=== PATIENT | female | born 1995 | race Hispanic/Latino ===

== ENCOUNTER 2018-10-07 06:45 | Inpatient (IN) | payer OTHER ==
--- NOTE | 2018-10-07 08:37 | PDOC.LDHP ---
Labor and Delivery H&P Chief complaint: contractions HPI: 23 y/o G1 at 39w1d, patient of Dr. Ovalles, presents with contractions since yesterday afternoon with pink tinged mucus today. Denies VB, LOF, or decreased FM. No PIH sx. ROS neg for HEENT, cv, pulm, gi, gu, neuro, psych, musculoskeletal or constitutional symptoms other than mentioned above. OB History Details: First Current complications: none Past Medical History: None Current medications: pre-jalen vitamins Previous surgical history: none Social history: none - Physical Exam Vital signs reviewed and normal: yes General: NAD, resting Lungs: nonlabored breathing Abdomen: gravid Extremeties: no edema FHT: category 1 (130s, mod variability, + accels, no decels) [place] contractions every: 3-5 mins - Vaginal Exam cm dilated: 2 Effacement: 50% Station: -3 - OB Labs Blood type: O RH: positive Antibody Screen: negative HIV: negative RPR: negative HEPSAg: negative 1 hour GCT: negative Rubella: immune - Assessment L&D Assessment: medically indicated induction (Persistently elevated BPs at term ) - Plan Plan: admit to L&D, labor augmentation if indicated, informed consent obtained, anesthesia consult for pain management (if desired)
[2018-10-07 08:53] LABS: #Basophils 0.1 thou/uL (0.0-0.2); #Lymphocytes 1.4 thou/uL (1.20-3.40); #Monocytes 0.6 thou/uL (0.11-0.59); #Neutrophils 4.9 thou/uL (1.40-6.50); %Basophils 0.9 % (0.0-1.0); %Eosinophils 0.4 % (0.0-10.0); %Lymphocytes 20.2 % (21.0-51.0); %Monocytes 8.8 % (0.0-10.0); %Neutrophils 69.7 % (42.0-75.0); Hemoglobin 10.7 g/dL (12.0-16.0); Mean Corpuscular HGB CONC 32.7 g/dL (32.0-36.0); Mean Corpuscular Hemoglobin 29.4 pg (27.0-31.0); Mean Corpuscular Volume 89.9 fL (78.0-98.0); Mean Platelet Volume 10.9 fL (7.4-10.4); Platelet Count 153 thou/uL (130-400); RBC Distribution Width 13.6 % (11.5-14.5); Red Blood Cell (RBC) Count 3.62 mill/uL (4.20-5.40); White Blood Cell (WBC) Count 7.1 thou/uL (4.8-10.8)
[2018-10-07 09:10] LABS: ALT (SGPT) 9 U/L (8-55); AST (SGOT) 17 U/L (5-34); Albumin 3.3 g/dL (3.5-5.0); Alkaline Phosphatase 247 U/L (40-150); Anion Gap 12 mmol/L (10-20); BUN (Urea Nitrogen) 8 mg/dL (7.0-18.7); Bilirubin, Total 0.2 mg/dL (0.2-1.2); Calc. Creatinine Clearance 0 mL/min (70-130); Calcium 9.2 mg/dL (7.8-10.44); Carbon Dioxide 22 mmol/L (22-29); Chloride 107 mmol/L (98-107); Estimated GFR-MDRD Greater than 90; Globulin 3.3 g/dL (2.4-3.5); Glucose 75 mg/dL (70-105); Potassium 4.2 mmol/L (3.5-5.1); Protein, Total 6.6 g/dL (6.0-8.3); Sodium 137 mmol/L (136-145)
[2018-10-07] MEDS ORDERED: Misoprostol 200 MCG TAB PR PRN (09:18)
[2018-10-07] MEDS ORDERED: Diphenoxylate HCl/Atropine Tablet PO PRN ×2 (09:18)
[2018-10-07] MEDS ORDERED: Ibuprofen 800 MG TAB PO PRN (09:18)
[2018-10-07] MEDS ORDERED: Butorphanol Tartrate 1 MG/ML VIAL SLOW IVP PRN (09:18)
[2018-10-07] MEDS ORDERED: Acetaminophen 500 MG TAB PO PRN (09:18)
[2018-10-07] MEDS ORDERED: Ondansetron PF 4 MG/2 ML Vial IVP PRN ×2 (09:18→11:43)
[2018-10-07] MEDS ORDERED: Lidocaine 1% (PF) 30 ML VIAL SC PRN (09:18)
[2018-10-07] MEDS ORDERED: Promethazine HCl 25 MG/ML VIAL IM PRN ×2 (09:18→11:43)
[2018-10-07] MEDS ORDERED: HYDROcodone/Acetaminophen 5/325 mg Tablet PO PRN ×2 (09:18)
[2018-10-07] MEDS ORDERED: Carboprost 250 MCG/ML AMP IM PRN (09:18)
[2018-10-07] MEDS ORDERED: Lactated Ringer's 1,000 ML IV SCH (09:30)
[2018-10-07] MEDS ORDERED: NS w/ Oxytocin 10 units 500 ML IV SCH (09:30)
[2018-10-07] MEDS ORDERED: Lidocaine 2% MPF 10 ML AMP (For Epidural Use) ONE (10:00)
[2018-10-07] MEDS ORDERED: Bupivacaine 0.25% HCL 30 ML VIAL ONE (10:00)
[2018-10-07 10:14] LABS: Creatinine, Urine 26.9 mg/dL (47-110)
[2018-10-07 10:46] VITALS: BMI 29.7
[2018-10-07] MEDS ORDERED: Lidocaine 1.5%/Epinephrine 1:200,000 5 ML AMPUL IJ ONE ×2 (11:13→14:47)
[2018-10-07] MEDS ORDERED: Fentanyl 4 mcg/Bup 0.1% Cadd 100 ML ONE ×2 (11:14→17:35)
[2018-10-07] MEDS ORDERED: Lactated Ringer's 500 ML IV PRN (11:43)
[2018-10-07] MEDS ORDERED: Naloxone HCl 0.4 mg/ml Vial IVP PRN ×2 (11:43)
[2018-10-07] MEDS ORDERED: diphenhydrAMINE 50 MG/ML VIAL IVP PRN (11:43)
[2018-10-07] MEDS ORDERED: ePHEDrine/0.9% NaCl/PF SYRINGE 50 mg/10 ml SLOW IVP PRN (11:43)
[2018-10-07] MEDS ORDERED: Acetaminophen 325 MG TAB PO PRN (11:43)
[2018-10-07] MEDS ORDERED: Eucerin (Mineral Oil/Petrolatum,White) 30 gm Jar TOP PRN (11:43)
[2018-10-07] MEDS ORDERED: Communication Order-Pharmacy FS SCH (11:45)
[2018-10-07] MEDS ORDERED: Fentanyl 4 mcg/Bupivacaine 0.1% Cassette 100 ML EPIDURAL SCH (11:45)
[2018-10-07 12:38] LABS: HBSAg Index 0.22 S/CO (0-0.99); Hep B Surf Ag Non-Reactive S/CO (NonReactive); Syphilis Antibody Nonreactive (Nonreactive); Syphilis Antibody Index 0.03 S/CO (<1.00 Non-Reactive)
--- NOTE | 2018-10-07 14:08 | PDOC.LDPN ---
Labor & Delivery Progress Note - Subjective Subjective: painful contractions - Objective Abnormal vital signs: mild range BP General: breathing through contractions Uterine fundus: non tender Dilation: 4 Effacement: 75% Station: -2 (arom at 1040) FHT: category 1 [place] contractions every: 3-4min AROM: clear fluid Plan: pitocin for augmentation, other (epidural) -: labs wnl, PCR 0.67, no sx PIH, BP mild, mag for severe features.
[2018-10-07] MEDS: NS / Oxytocin 40 units/1000ml 1,000 ML IV PRN (20:15)
--- NOTE | 2018-10-07 20:23 | PDOC.OPDEL ---
OB Operative/Delivery Note Delivery Dr/Surgeon: Josr Assist: n/a Pre-Delivery Diagnosis: medically indicated induction (PIH) Procedure/Post Delivery Dx: spontaneous vaginal delivery Weeks gestation: 39 Anesthesia: epidural - Findings A Sex: female - 1 min: 8 - 5 min: 9 - Additional Findings/Plan Placenta delivered: spontaneous Repaired Obstetrical Laceration: none Compilations/Other Findings: NC x 1 loose, delivered through, no dystocia Post delivery plan: routine recovery
[2018-10-08] MEDS: NS / Oxytocin 40 units/1000ml 1,000 ML IV PRN (00:11)
[2018-10-08] MEDS ORDERED: Preparation H Ointment 28 GM TUBE PR PRN (00:33)
[2018-10-08] MEDS ORDERED: NS / Oxytocin 40 units/1000ml 1,000 ML IV SCH (00:33)
[2018-10-08] MEDS ORDERED: diphenhydrAMINE 25 MG CAP PO PRN (00:33)
[2018-10-08] MEDS ORDERED: Adacel (T-DAP) 0.5 ML SYRINGE IM ONE (00:33)
[2018-10-08] MEDS ORDERED: Milk Of Magnesia 30 ML UDCUP PO PRN (00:33)
[2018-10-08] MEDS ORDERED: Ondansetron PF 4 MG/2 ML Vial IVP PRN (00:33)
[2018-10-08] MEDS ORDERED: Lanolin Ointment 7 GM TUBE TOP PRN (00:33)
[2018-10-08] MEDS ORDERED: Bisacodyl 10 MG SUPP PR PRN (00:33)
[2018-10-08] MEDS ORDERED: HYDROcodone/Acetaminophen 5/325 mg Tablet PO PRN ×2 (00:33)
[2018-10-08] MEDS ORDERED: Benzocaine/Menthol 20-0.5% 60 ML CAN TOP PRN (00:33)
[2018-10-08] MEDS: Ibuprofen 800 MG TAB PO SCH ×4 (00:56→21:06)
[2018-10-08] MEDS: Docusate Calcium (SURFAK) 240 MG CAP PO SCH ×3 (00:56→21:06)
[2018-10-08] MEDS: Ferrous Sulfate 325 MG TAB PO SCH ×2 (07:42→17:33)
--- NOTE | 2018-10-08 08:08 | PDOC.PP ---
Post Progress Note Post Day #: 1 Subjective: Doing well. Pain controlled. Moderate lochia. Bottle feeding. PO intake tolerated: yes Flatus: yes Ambulation: yes Vital Signs (12 hours) Temp Pulse Resp BP Pulse Ox 10/08/18 05:00 97.6 F 81 18 141/91 H 10/08/18 02:00 97.9 F 73 18 131/81 10/08/18 01:00 98.5 F 78 20 131/83 10/08/18 00:05 97.9 F 71 20 137/81 99 Weight Weight 168 lb - Physical Examination General: NAD Cardiovascular: RRR Respiratory: non-labored breathing Abdominal: no distention Deviation from normal: below umbilicus Extremities: negative homans (B) Neurological: no gross focal deficits Psychiatric: A&Ox3, normal affect Result Diagrams: 10/07/18 08:34 10/07/18 08:34 Additional Labs: Post Labs Blood Type O POSITIVE 10/07/18 11:49 Hep Bs Antigen Non-Reactive S/CO (NonReactive) 10/07/18 11:48 (1) Vaginal delivery Code(s): O80 - ENCOUNTER FOR FULL-TERM UNCOMPLICATED DELIVERY Status: Acute (2) Anemia Code(s): D64.9 - ANEMIA, UNSPECIFIED Status: Acute Qualifiers: Anemia type: iron deficiency - Assessment/Plan PPD 1 VSSAF Anemia prior to delivery, Fe. supplement. Continue PP care. BPs wnl. Plan for d/c 1-2 days.
[2018-10-08] MEDS: Prenatal Vitamin 1 TAB PO SCH (09:05)
[2018-10-08 09:17] LABS: #Monocytes 0.7 thou/uL (0.11-0.59); #Neutrophils 9.1 thou/uL (1.40-6.50); %Basophils 0.4 % (0.0-1.0); %Eosinophils 0.1 % (0.0-10.0); %Monocytes 5.9 % (0.0-10.0); %Neutrophils 76.5 % (42.0-75.0); Hemoglobin 9.3 g/dL (12.0-16.0); Mean Corpuscular HGB CONC 32.2 g/dL (32.0-36.0); Mean Corpuscular Hemoglobin 29.2 pg (27.0-31.0); Mean Corpuscular Volume 90.7 fL (78.0-98.0); Mean Platelet Volume 11.1 fL (7.4-10.4); Platelet Count 133 thou/uL (130-400); RBC Distribution Width 13.5 % (11.5-14.5); Red Blood Cell (RBC) Count 3.18 mill/uL (4.20-5.40); White Blood Cell (WBC) Count 11.9 thou/uL (4.8-10.8)
[2018-10-09] MEDS: Ibuprofen 800 MG TAB PO SCH (05:28)
[2018-10-09 08:17] VITALS: BP 151/86; TEMP 97.8
[2018-10-09] MEDS: Ferrous Sulfate 325 MG TAB PO SCH (08:35)
[2018-10-09] MEDS: Prenatal Vitamin 1 TAB PO SCH (08:35)
[2018-10-09] MEDS: Docusate Calcium (SURFAK) 240 MG CAP PO SCH (08:35)
--- NOTE | 2018-10-09 10:16 | PDOC.PP ---
Post Progress Note Post Day #: 2 PO intake tolerated: yes Flatus: yes Ambulation: yes Vital Signs (12 hours) Temp Pulse Resp BP Pulse Ox 10/09/18 08:16 97.8 F 64 20 151/86 H 99 10/09/18 05:20 97.6 F 74 20 124/83 10/09/18 00:00 97.9 F 79 18 124/78 Weight Weight 168 lb - Physical Examination General: NAD Respiratory: non-labored breathing Abdominal: no distention, appropriately TTP Fundus firm & at: umb Neurological: no gross focal deficits Psychiatric: normal affect Result Diagrams: 10/08/18 09:05 10/07/18 08:34 Additional Labs: Post Labs Blood Type O POSITIVE 10/07/18 11:49 Hep Bs Antigen Non-Reactive S/CO (NonReactive) 10/07/18 11:48 - Assessment/Plan PPD2 s/p TSVD VSSAF Doing well, lochia < menses Bottlefeeding Mild asx iron def anemia, cont PNV on DC Rh pos RImm DC home FU 6wk
== END 2018-10-09 13:38 | disposition home or self-care (01) | DRG 807 ==
LOC: L&D/OP 06:45 → L&D 09:55 → 3SW 10-08 00:06
PROVIDERS: ADMIT Student in an Organized Health Care Education/Training Program; ATTEND Student in an Organized Health Care Education/Training Program
PROC: 10E0XZZ Delivery of Products of Conception, External Approach (ICD-10-PCS; principal; 2018-10-07)
PROC: 10907ZC Drainage of Amniotic Fluid, Therapeutic from Products of Conception, Via Natural or Artificial Opening (ICD-10-PCS; 2018-10-07)
PROC: 3E033VJ Introduction of Other Hormone into Peripheral Vein, Percutaneous Approach (ICD-10-PCS; 2018-10-07)
DX: O14.94 Unspecified pre-eclampsia, complicating childbirth (principal); O69.81X0 Labor and delivery complicated by cord around neck, without compression, not applicable or unspecified; O99.02 Anemia complicating childbirth; D50.9 Iron deficiency anemia, unspecified; Z37.0 Single live birth; Z3A.39 39 weeks gestation of pregnancy
CPT/HCPCS: 36415; 51702; 80053; 82570; 84156; 85025; 86780; 86850; 86900; 86901; 87340; 99285; J2001; J3490